=== PATIENT | male | born 1940 | race Caucasian/White ===

== ENCOUNTER 2022-07-08 01:53 | Emergency (ER) | payer MEDICARE, BC, SELFPAY ==
[2022-07-08 02:06] VITALS: BP 220/91; PULSE 74; RESP 16; TEMP 36.7; O2SAT 96; BMI 28.7
[2022-07-08 02:12] VITALS: BP 171/82; PULSE 71
[2022-07-08] MEDS: CELECOXIB 200 MG CAPSULE PO (02:46)
--- NOTE | 2022-07-08 02:46 | ED.GENADULT ---
HPI - General Adult General Chief complaint: Jaw Injury/Pain Stated complaint: Jaw Pain Time Seen by Provider: 07/08/22 02:01 Source: patient and family Mode of arrival: ambulatory History of Present Illness HPI narrative: 81-year-old male presents the emergency department with a 4 day history of pain in the right jaw/ear area, no trauma nor injury. Had similar symptoms a few weeks ago on the left side and was evaluated by his dentist, no dangerous etiology was found. Patient states that he comes to the ED in the middle of the night for the pain because it was not getting better and was starting to radiate un inch her head slightly. It is worse with opening his jaw but he does not endorse any type of claudication symptoms. There is no headache, no vision changes. No skin changes noted, no swallowing difficulty. No dental pain. Did have a slight earache but does not endorse this any longer, this was a couple of days ago. No drainage noted from the ear. He tried taking 2 aspirin about 14 hours ago which may have helped temporarily he then tried taking 2 Advil about 8 hours ago and tried to repeat for S ago with limited temporary improvement. Has not tried ice or other interventions. Does not believe that he has had x-rays of his jaw performed. No chest pain, no shortness of breath, no fever, no neck pain. He states that his past medical history is notable for hypertension and some skin cancers. He is on antihypertensives and Efudex treatment under the care of Dr. Juarez. Socially with no recent pertinent travel or smoking. Negative for other generalized, HEENT, musculoskeletal, cardiovascular, respiratory or skin changes. Related Data Home Medications Medication Instructions Recorded Confirmed meclizine 25 mg tablet 25 mg PO QDAY PRN 05/03/22 05/03/22 valsartan 80 mg tablet (Diovan) 80 mg PO QDAY 05/03/22 07/08/22 albuterol sulfate 90 mcg/actuation inhalation 07/08/22 aerosol inhaler budesonide-formoterol HFA 80 inhalation 07/08/22 mcg-4.5 mcg/actuation aerosol inhaler (Symbicort) hydrochlorothiazide 12.5 mg capsule 12.5 mg PO DAILY 07/08/22 07/08/22 valsartan 160 tab 07/08/22 mg-hydrochlorothiazide 12.5 mg tablet Previous Rx's Medication Instructions Recorded fluorouracil 5 % topical cream 1 applic topical .weekly #40 grams 05/03/22 (Efudex) tacrolimus 0.1 % topical ointment 1 applic topical BID #60 grams 05/03/22 pimecrolimus 1 % topical cream 1 applic topical BID #100 grams 05/19/22 (Elidel) pimecrolimus 1 % topical cream 1 applic topical BID #60 grams 05/24/22 (Elidel) hydrocortisone 2.5 % topical cream 1 applic topical BID PRN rash #20 06/09/22 grams Allergies Allergy/AdvReac Type Severity Reaction Status Date / Time omeprazole AdvReac Verified 07/08/22 02:06 ADVAIR AdvReac Uncoded 07/08/22 02:06 Amlodipine AdvReac Uncoded 07/08/22 02:06 Atenolol AdvReac Uncoded 07/08/22 02:06 Lisinopril AdvReac Uncoded 07/08/22 02:06 [facility] Medical History (Updated 07/08/22 @ 02:37 by Mary Wilkes MD) Atopic dermatitis HTN (hypertension) Social History Smoking Status: Never smoker Do you use any of these nicotine containing products: None How often do you have a drink containing alcohol: never AUDIT-C Alcohol total score: 0 Non-prescribed substance use: denies use Exam Const: Vital Signs, click to edit/add: Vital Signs - 24 hr 07/08/22 02:06 07/08/22 02:12 Temperature 98.1 F Pulse Rate [Right Pulse Oximeter] 74 71 Respiratory Rate 16 Blood Pressure [Ri ght Upper Arm] 220/91 H 171/82 H Pulse Oximetry 96 Oxygen Delivery Me thod Room Air Documenting provider has reviewed patient's vital signs: yes Common normals: no apparent distress General appearance: cooperative and comfortable Other: Mildly anxious, good historian HENMT: Common normals: normocephalic, head/scalp atraumatic, hearing grossly normal bilaterally, external ears normal, TM's normal bilaterally and external nose normal Head and scalp: normocephalic and atraumatic Face and sinus: normal facial exam, sinuses nontender, face symmetric and TMJ findings tender to palpation: right Nose: external nose normal External ear: external ears normal Tympanic membrane: TM's normal bilaterally Mouth: oral and palatal mucosa normal, TMJ findings TMJ Findings: tender to palpation: right and other (TMJ joint with mild tenderness to the right side. Nontender on the left. ) Other: No locking, clicking or popping to the TMJ joints. He can open the jaw though it is painful. Palpation along the temporal artery is negative. No swelling, no tenderness, no deformity or palpable abnormality. Dentition is moderate with some treated dental caries, no signs of swelling, abscess, drainage or odor. Some sequelae of teeth grinding noted, likely remote or ongoing. Eye: Common normals: PERRL General eye: normal appearance of both eyes Pupil: PERRL Neck & C-Spine: Common normals: full ROM, no lymphadenopathy and supple Resp: Common normals: normal respiratory effort Effort & inspection: able to speak in complete sentences Cardio: Common normals: regular rate, regular rhythm and peripheral pulses 2+ throughout Rate: regular rate Rhythm: regular rhythm Peripheral pulses: pulses 2+ throughout Skin: Narrative: Few scattered scaly spots on the top of the left ear in the scalp, he assures me these are being addressed by Dermatology. No redness, swelling, skin lesions in the affected area of the right jaw and cheek. Course Vital Signs Vital signs: Initial Vital Signs Temperature 98.1 F 07/08/22 02:06 Temperature Source Temporal Artery Scan 07/08/22 02:06 Pulse Rate 74 07/08/22 02:06 Respiratory Rate 16 07/08/22 02:06 Blood Pressure 220/91 H 07/08/22 02:06 Blood Pressure Mean 134 07/08/22 02:06 Blood Pressure Position Sitting 07/08/22 02:06 Pulse Oximetry 96 07/08/22 02:06 Oxygen Delivery Method 07/08/22 02:06 Vital Signs Temperature 98.1 F 07/08/22 02:06 Pulse Rate 74 07/08/22 02:06 Respiratory Rate 16 07/08/22 02:06 Blood Pressure 220/91 H 07/08/22 02:06 Pulse Oximetry 96 07/08/22 02:06 Oxygen Delivery Method 07/08/22 02:06 Temperature 98.1 F 07/08/22 02:06 Pulse Rate 71 07/08/22 02:12 Respiratory Rate 16 07/08/22 02:06 Blood Pressure 171/82 H 07/08/22 02:12 Pulse Oximetry 96 07/08/22 02:06 Oxygen Delivery Method 07/08/22 02:06 Medical Decision Making MDM Narrative Medical decision making narrative: Differential diagnosis including otitis media, cellulitis, TMJ syndrome, dental abscess, temporal arteritis. 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 Discussed that this will likely be an ongoing issue for him and he should begin making plans for a long-term solution or management plan. He will be given a 1000 mg of Tylenol and 200 mg of Celebrex. Discussed use of Tylenol and ibuprofen at home, jar rest. Make a follow-up appointment with dentistry or primary care to discuss nighttime mouth guard, referral to specialist if episodes continue to be bothersome. Okay to use melatonin or a low dose of Benadryl to help with sleep in the setting of pain. Dietary discretion recommended. He verbalized understanding and agreement. Alarm symptoms that would warrant ED presentation were reviewed. Discharge Plan Discharge Clinical Impression: Arthralgia of right temporomandibular joint Patient Disposition: Home w/ Parent or Adult Condition: Stable Instructions: Temporomandibular Disorder (ED) Additional Instructions: There are no signs of any dangerous conditions like infection, dental abscess, ear infection or other more worrisome condition today. You have tenderness over the TMJ joint which I suspect is the reason for your pain. This is a very common condition. It is a type of arthritis in the joint of your jaw. Unfortunately, your symptoms are likely to come back. I would recommend that you make a follow-up appointment with your dentist or primary care physician to discuss further treatment options. Many people benefit from a mouth guard at night, sometimes x-rays of this joint are helpful. There is also a type of specialist that helps deal with arthritis specifically in this area if none of the usual treatments help your symptoms. It is important or taking proper amounts of pain medication. Recommend that you take Tylenol, 1000 mg 3 times daily. If Still bothersome, you may take ibuprofen 600 mg 3 times daily. I have Limited the amount to 3 times daily because of your history of high blood pressure. Because they are each 3 times daily, them every few hours, alternating them for better pain control. It is okay to apply ice on the outside of the cheek and jaw to help with pain as well. Limit your diet to soft foods for the next few days and try to limit any gum chewing, prolonged talking or other use of the jaw. If your symptoms are not improving within a few days, you may benefit from a prednisone burst, please make a follow-up appointment with your primary care doctor if not improving. You were given a dose of Tylenol in the emergency room, you are eligible for your next dose at 8:00 a.m. if needed. You were given a dose of Celebrex, this acts like a long-acting ibuprofen. Try to wait until noon before taking any more ibuprofen. Contact her primary care provider if the Celebrex is more helpful, they could consider this as a long-term option as well. Activity Level: No Restrictions Discharge Diet: Regular Prescriptions: No Action valsartan [Diovan] 80 mg tablet 80 mg PO QDAY meclizine 25 mg tablet 25 mg PO QDAY PRN tacrolimus 0.1 % ointment 1 applic topical BID Qty: 60 2RF Rx Instructions: Apply topically to affected area twice daily fluorouracil [Efudex] 5 % cream 1 applic topical .weekly Qty: 40 0RF Rx Instructions: Apply topically to affected area(s) one day weekly valsartan-hydrochlorothiazide 160-12.5 mg tablet Label Comments: TAKE ONE TABLET BY MOUTH EVERY DAY albuterol sulfate 90 mcg/actuation HFA aerosol inhaler INHALATION Label Comments: INHALE 2 PUFFS BY MOUTH EVERY FOUR HOURS NEEDED FOR WHEEZING OR SHORTNESS OF BREATH. USE WITH SPACER budesonide-formoterol [Symbicort] 80-4.5 mcg/actuation HFA aerosol inhaler INHALATION Label Comments: INHALE 2 PUFFS BY MOUTH TWICE A DAY. RINSE MOUTH WITH WATER AFTER USE TO REDUCE AFTERTASTE. DO NOT SWALLOW hydrochlorothiazide 12.5 mg capsule 12.5 mg PO DAILY pimecrolimus [Elidel] 1 % cream 1 applic topical BID Qty: 100 0RF pimecrolimus [Elidel] 1 % cream 1 applic topical BID Qty: 60 0RF hydrocortisone 2.5 % cream 1 applic topical BID PRN (Reason: rash) Qty: 20 1RF Follow Up/Referrals: Provider,Not a Local [Primary Care Provider] - Stand Alone Forms: [facility] Info Instructions
[2022-07-08] MEDS: ACETAMINOPHEN 500 MG TABLET 1000 MG PO (02:47)
== END 2022-07-08 02:48 | disposition home or self-care (01) ==
PROVIDERS: Emergency Provider Family Medicine
DX: M26.621 Arthralgia of right temporomandibular joint (principal)
CPT/HCPCS: 99282; 99283; A9270